=== PATIENT | male | born 1995 | race Two or more races ===

== ENCOUNTER 2023-08-11 23:19 | Emergency (ER) | payer SELFPAY ==
[~2023-08-11] VITALS: Ht 165.1 cm; Wt 60.8 kg
[2023-08-12 00:38] VITALS: BP 120/83; TEMP 99.2; O2SAT 100
[2023-08-12] MEDS ORDERED: SULF1TAB48 PO (01:11)
[2023-08-12] MEDS ORDERED: PRED50TA PO (01:11)
[2023-08-12] MEDS ORDERED: CEPH500T PO (01:11)
[2023-08-12] MEDS ORDERED: diphenhydrAMINE HCL 50 MG CAPSULE ONE (01:12)
[2023-08-12] MEDS ORDERED: predniSONE 20 MG TABLET ONE (01:12)
[2023-08-12] MEDS: diphenhydrAMINE HCL 50 MG CAPSULE PO ONE (01:18)
[2023-08-12] MEDS: predniSONE 10 MG TABLET PO ONE (01:18)
[2023-08-12] MEDS ORDERED: ACETAMINOPHEN ES 500 MG TABLET ONE (01:19)
[2023-08-12] MEDS: ACETAMINOPHEN ES 500 MG TABLET PO ONE (01:23)
== END 2023-08-12 01:30 | disposition home or self-care (01) ==
LOC: ER 23:24
DX: L23.9 Allergic contact dermatitis, unspecified cause (principal); L03.116 Cellulitis of left lower limb
CPT/HCPCS: 99284; Q0163; J7512 ×2

== ENCOUNTER 2023-08-12 21:26 | Emergency (ER) | payer MEDICAID ==
[~2023-08-12] VITALS: Ht 165.1 cm; Wt 60.8 kg
[~2023-08-12 21:26] MED LIST: CEPH500T PO; PRED50TA PO; SULF1TAB48 PO
[2023-08-12 22:16] VITALS: BP 118/79; TEMP 100
[2023-08-12] MEDS ORDERED: KETOROLAC TROMETHAMINE 15 MG/ML VIAL ONE (22:43)
[2023-08-12] MEDS ORDERED: ACETAMINOPHEN ES 500 MG TABLET ONE (22:43)
[2023-08-12] MEDS: IV NS 0.9% 1,000 ML BAG IV ONE (22:57)
[2023-08-12] MEDS: KETOROLAC TROMETHAMINE 15 MG/ML VIAL IV ONE (22:57)
[2023-08-12] MEDS: ACETAMINOPHEN ES 500 MG TABLET PO ONE (22:57)
[2023-08-12 23:08] LABS: BASOPHILS % (AUTO) 0.1 % (0.0-2.0); EOSINOPHILS # (AUTO) 0.1 K/uL (0.0-0.7); EOSINOPHILS % (AUTO) 0.4 % (0.0-6.0); HEMATOCRIT 47 % (39-51); HEMOGLOBIN 15.9 g/dL (13.5-17.5); LYMPHOCYTES % (AUTO) 6.9 % (20.0-44.0); MEAN CORPUSCULAR HEMOGLOBIN 29 PG (26.0-33.0); MEAN CORPUSCULAR HGB CONC 34 g/dl (31.0-36.0); MEAN CORPUSCULAR VOLUME 86 fL (80-96); MONOCYTES # (AUTO) 0.8 K/uL (0.1-1.30); MONOCYTES % (AUTO) 5.3 % (2.0-12.0); NEUTROPHILS # (AUTO) 12.5 K/uL (1.8-8.9); NEUTROPHILS % (AUTO) 87.3 % (43.0-81.0); PLATELET COUNT (AUTO) 415 K/uL (150-450); RED BLOOD CELL COUNT(AUTO) 5.47 MIL/uL (4.5-6.0); RED CELL DISTRIBUTION WIDTH 13.4 % (11.5-15.0); WHITE BLOOD COUNT (AUTO) 14.4 K/uL (4.3-11.0)
[2023-08-12 23:18] LABS: CALCIUM, SERUM 9.7 mg/dL (8.5-10.1); CREATININE 0.8 mg/dL (0.6-1.3); POTASSIUM 3.7 mmol/L (3.5-5.1)
[2023-08-12 23:26] LABS: ALBUMIN 3.8 g/dL (3.4-5.0); BILIRUBIN,DIRECT 0.1 mg/dL (0.0-0.2); BILIRUBIN,TOTAL 0.3 mg/dL (0.2-1.0); TOTAL PROTEIN, SERUM 8.4 g/dL (6.4-8.2)
[2023-08-13 00:06] VITALS: O2SAT 98
== END 2023-08-13 00:07 | disposition home or self-care (01) ==
LOC: ER 21:28
DX: L23.9 Allergic contact dermatitis, unspecified cause (principal); L03.116 Cellulitis of left lower limb; R50.9 Fever, unspecified; R53.81 Other malaise
CPT/HCPCS: 99283; 96374; 96361; 85025; 80048; 80076; 36415; J7030; J1885

== ENCOUNTER 2023-08-15 16:00 | Emergency (ER) | payer MEDICAID ==
[~2023-08-15] VITALS: Ht 165.1 cm; Wt 61.2 kg
[2023-08-15 16:34] VITALS: BP 122/66; TEMP 97.5; O2SAT 98
[2023-08-15] MEDS: hydrOXYzine 10 MG TABLET PO ONE (18:00)
[2023-08-15] MEDS ORDERED: hydrOXYzine 10 MG TABLET ONE (18:40)
[2023-08-15] MEDS ORDERED: HYDR-500 PO (20:01)
== END 2023-08-15 23:09 | disposition home or self-care (01) ==
LOC: ER 16:00
DX: L23.9 Allergic contact dermatitis, unspecified cause (principal)
CPT/HCPCS: 99283; Q0177